=== PATIENT | female | born 1970 | race Caucasian/White ===

== ENCOUNTER → 2023-05-13 06:10 | Day surgery (SDC) | payer OTHER, SELFPAY | LOC: GI 06:10 | PROVIDERS: ATTENDING PHYSICIAN Specialist | DX: Z12.11 Encounter for screening for malignant neoplasm of colon (principal); K57.30 Diverticulosis of large intestine without perforation or abscess without bleeding; D12.5 Benign neoplasm of sigmoid colon; D12.3 Benign neoplasm of transverse colon; K63.5 Polyp of colon | CPT/HCPCS: 45385; 45380; 88305 ==

== ENCOUNTER → 2023-06-15 13:08 | Outpatient (REF) | payer OTHER, SELFPAY | LOC: WDC 13:08 | PROVIDERS: ATTENDING PHYSICIAN Internal Medicine | DX: Z12.31 Encounter for screening mammogram for malignant neoplasm of breast (principal) | CPT/HCPCS: 77063; 77067 ==

== ENCOUNTER 2023-10-28 05:18 | Emergency (ER) | payer OTHER, SELFPAY ==
[2023-10-28 05:19] VITALS: BP 148/101
[2023-10-28 05:39] VITALS: BMI 29.9
--- NOTE | 2023-10-28 05:46 | ED.GENMED ---
History of Present Illness
General
Chief Complaint: Abdominal Pain
Source: patient and spouse
Exam Limitations: none
Time Seen by Provider: 10/28/23 05:38
Nursing documentation reviewed up to this point in time: agreed with
History of Present Illness
History of Present Illness:
53-year-old female with a past medical history of diabetes who presents to the emergency room for evaluation of abdominal pain. 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
few hours and then resolved. She had return of symptoms this morning and they were more intense and persistent which prompted trip to the emergency room. She reports aching pain in the epigastrium. Nonradiating. No clear triggering or relieving
factors noted. Associated with nausea but no vomiting. No diarrhea. She has chronic constipation unchanged. Denies vaginal bleeding or discharge (she is perimenopausal, last menstrual period was April). She denies any dysuria, hematuria,
change in urinary frequency. Denies any fevers or chills. She has a prior surgical history of cholecystectomy.
Review of Systems
Review of Systems
All Other Systems: ROS reviewed and negative except as documented in HPI and ROS
Constitutional: Denies fever or chills
Respiratory: Denies cough or trouble breathing
Cardiac: Denies chest pain
ABD/GI: Reports abdominal pain, nausea and constipated (Chronic); Denies vomiting or diarrhea
: Denies dysuria, frequency, flank pain, incontinence or bleeding
Musculoskeletal: Denies neck pain or back pain
Neurological: Denies dizzy or headache
Phy Exam
Physical Exam
Physical Exam:
General: Awake, alert; no acute distress
Head: Normocephalic, atraumatic
Eyes: Conjunctiva normal, pupils equal round and reactive to light bilaterally, sclera anicteric
Throat: Airway intact, handling secretions
Neck: Trachea midline, supple without meningismus
Lungs: Breathing comfortably not in distress
Heart: Regular rate
Abd: Soft, non distended, tender to palpation epigastrium
Neuro: No gross deficits
Extremities: Warm and well-perfused with no edema
Scores
Heart Failure Risk
Heart Failure Risk Score: Not Applicable
Heart Score for Chest Pain Patients
STEMI patient?: Not applicable
Withdrawal Assessment of Alcohol
Withdrawal Assessment Completed?: Not applicable
Course
Orders/Labs/Results
Orders:
Orders
10/28/23 05:35
IV Insert/Care/Rem.- Treatment PRN
10/28/23 05:36
Test Result ONCE
10/28/23 05:37
CT Abd/pelvis W Iv Cont Urgent
Comment:
Reason For Exam: upper abd pain
10/28/23 05:49
Electrocardiogram (*1) Urgent
Reason for Study: Abdominal Pain
EKG- Treatment ONCE
10/28/23 05:52
Comprehensive Metabolic Panel Urgent
HCG, Serum Qualitative Screen Urgent
Comment: Notify provider if positive test present
Lipase Urgent
Troponin I Urgent
10/28/23 06:18
Complete Blood Count/With Diff Urgent
Comment: REDRAW
Abnormal Lab Results
10/28/23
05:52
BUN 18 H mg/dl
(7-17)
AST 41 H U/L
(14-36)
10/28/23 05:52
Vital Signs
Initial and Last Documented VS:
Initial Vital Signs
Temp Pulse Resp BP Pulse Ox
37.2 C 90 16 148/101 100
10/28/23 05:19 10/28/23 05:19 10/28/23 05:19 10/28/23 05:19 10/28/23 05:19
Last Documented Vital Signs
Temp Pulse Resp BP Pulse Ox
37.2 C 90 16 151/97 100
10/28/23 05:19 10/28/23 05:19 10/28/23 05:19 10/28/23 06:00 10/28/23 06:00
MDM/Problems Addressed
Differential Diagnosis Includes:
Gastritis/PUD, pancreatitis, bowel obstruction, anginal equivalent
MDM/Problems Addressed:
53-year-old female presents for evaluation of epigastric abdominal pain�had a transient episode yesterday returned this morning more intense. Hypertensive but otherwise normal vitals. Physical exam as above. Will place an IV check labs including
CBC and a CMP and lipase. Check an hCG. Will check an EKG and troponin. Check CT abdomen pelvis. Monitor closely reassess after the above.
CMP reviewed shows no clinically significant normalities. hCG negative. Troponin negative. CBC hemolyzed most recent and still pending. CT pending.
CT abdomen pelvis shows no acute pathology to account for patient's symptoms. Suspect likely acute gastritis or PUD. Patient has been stable throughout ED visit. Think she is stable for discharge on PPI and Carafate. Will refer to GI as an
outpatient. She is comfortable this plan. Spoke about return precautions all questions answered.
Acute Exacerbation and/or Progression of Chronic Illness:
Acutely hypertensive
Acute Exacerbation and/or Progression of Chronic Illness: HTN
*Radiology
Radiology exam reviewed: radiology read reviewed
*Pulse Oximetry
Patient hypoxic: no
*EKG
Interpreted by ED Provider?: Yes
Heart Rate: 80
Rate: normal
Rhythm: sinus
[place]: normal axis
Interval: normal interval
QRS Pattern: normal QRS
Ischemia: no ischemia
*Critical Care Note
Total Time (30-74mins, 75-104mins- exclusive of procedures): Not Applicable
Data Reviewed
Source: patient and records
ED Attending Note
-
Portions of this chart may have been created with voice recognition software.� Occasional wrong word or��sound alike� substitutions may have occurred due to the inherent limitations of voice recognition software.
Discharge Plan
Departure
Patient with high blood pressure during this ER visit?: Yes
Discharge Problem:
Abdominal pain, Gastritis, Hypertension
Instructions: Gastritis (DC), Abdominal Pain, BLOOD PRESSURE
Prescriptions:
New
pantoprazole [Protonix] 40 mg tablet,delayed release (DR/EC)
40 mg PO DAILY Qty: 30 0RF
sucralfate [Carafate] 100 mg/mL suspension
10 ml PO ACHS 14 Days Qty: 560 0RF
No Action
metformin 500 mg Tablet
500 mg PO DAILY
bupropion HCl [Wellbutrin XL] 300 mg Tablet Extended Release 24 Hr
300 mg PO DAILY
Zepbound 12.5 mg/0.5 mL Pen Injector
12.5 mg SC QWEEK
Referrals:
Ann Rice DO [Active] - Call in 1-3 days for appt (GI physician)
Raven Mcclain NP [Family Provider] -
Activity Restrictions/Additional Instructions:
Thank you for visiting the Emergency Department at [facility].
1. Please schedule a follow up appointment as directed. Call first thing tomorrow morning to make an appointment.
2. If indicated, please take your medications as instructed and indicated on discharge paperwork.
3. If any of your symptoms do not improve, or persist, or become more severe within 6-12 hours, please return to the emergency department for further care.
4. Please return to the emergency department if you develop a headache, neck pain/stiffness, fever greater than 100.4F, chest pain, shortness of breath, persistent nausea, vomiting, slurred speech, difficulty walking, numbness/tingling, weakness,
signs of infection or any other symptoms that are worrisome to you.
Please call [phone] if you have any questions.
Interventions
Interventions:
*General Assessment Last Done: 10/28/23 05:19
*Neglect/Abuse Screening Last Done: 10/28/23 05:39
ED- Fall Risk Assessment Last Done: 10/28/23 05:39
CN-[id number]-[id number] Assessment Last Done: 10/28/23 05:39
Discharge Date and Time
Print Language: FRISIAN
[2023-10-28 05:50] VITALS: BP 153/98
[2023-10-28 06:00] VITALS: BP 151/97
[2023-10-28 06:12] LABS: HCG, Serum Qualitative Screen Negative
[2023-10-28 06:16] LABS: ALT (SGPT) 32 U/L (0-35); AST (SGOT) 41 U/L (14-36); Albumin 4.9 g/dl (3.5-5.0); Alkaline Phosphatase 59 U/L (38-126); Blood Urea Nitrogen 18 mg/dl (7-17); Calcium 9.9 mg/dl (8.4-10.2); Carbon Dioxide 25 mmol/L (22-30); Chloride 103 mmol/L (98-107); Estimated Creatinine Clearance 63 ml/min; Glucose 85 mg/dl (70-99); Lipase 99 U/L (23-300); Potassium 4.3 mmol/L (3.5-5.1); Sodium 136 mmol/L (135-145); Total Bilirubin 0.8 mg/dl (0.2-1.3); Total Protein 7.3 g/dl (6.3-8.2); eGFR > 60.00
[2023-10-28 06:37] LABS: Troponin I < 0.012 ng/ml
[2023-10-28 07:40] LABS: % Basophils 0.4 % (0-2); % Eosinophils 1.8 % (0-6); % Immature Granulocytes 0.4 % (0-0.5); % Lymphocytes 15.2 % (20.5-51.1); % Monocytes 7.3 % (1.7-9.3); % Neutrophils 74.9 % (42.2-75.2); Absolute Eosinophils 0.1 10^3/uL (0-0.7); Absolute Lymphocytes 1.2 10^3/uL (1.2-3.4); Absolute Monocytes 0.6 10^3/uL (0.1-0.6); Absolute Neutrophils 5.9 10^3/uL (1.4-6.5); Hematocrit 38.3 % (37.0-47.0); Hemoglobin 13.3 g/dL (12.0-16.0); Mean Corp Hgb Conc. 34.7 g/dL (33.0-37.0); Mean Corpuscular Volume 86.3 fL (81.0-99.0); Mean Platelet Volume 8.8 fL (7.4-10.4); Nucleated Red Blood Cells % 0 %; Platelet Count 330 10^3/uL (130-400); Red Blood Cell Count 4.44 10^6/uL (4.20-5.40); Red Cell Dist. Width 12.6 % (11.5-14.5); White Blood Cell Count 7.9 10^3/uL (4.8-10.8)
[2023-10-28] MEDS: PROTONIX IV 40 MG IV (08:21)
[2023-10-28] MEDS: CARAFATE SUSPENSION 1 GM PO (08:21)
[2023-10-28] MEDS: MAALOX 50 PO (08:21)
[2023-10-28 08:33] VITALS: BP 140/102
== END 2023-10-28 08:55 | disposition home or self-care (01) ==
LOC: EMR 05:18
PROVIDERS: EMERGENCY PHYSICIAN Emergency Medicine; FAMILY PHYSICIAN Internal Medicine
DX: R10.9 Unspecified abdominal pain (principal); K29.70 Gastritis, unspecified, without bleeding; I10 Essential (primary) hypertension; E11.9 Type 2 diabetes mellitus without complications; K59.09 Other constipation; Z90.49 Acquired absence of other specified parts of digestive tract
CPT/HCPCS: 99284; 96374; 74177; 80053; 83690; 84484; 84703; 85025; 93005; Q9967

== ENCOUNTER → 2024-06-15 13:45 | Outpatient (REF) | payer OTHER, SELFPAY | LOC: WDC 13:45 | PROVIDERS: ATTENDING PHYSICIAN Obstetrics & Gynecology Gynecology; FAMILY PHYSICIAN Internal Medicine | DX: Z12.31 Encounter for screening mammogram for malignant neoplasm of breast (principal) | CPT/HCPCS: 77063; 77067 ==